=== PATIENT | female | born 1955 | race Two or more races ===

== ENCOUNTER 2018-01-06 04:45 | Emergency (ER) | payer SELFPAY ==
[2018-01-06] MEDS ORDERED: ONDANSETRON HCL INJ/PF 4 MG/2 ML SDV IV ONE (05:13)
[2018-01-06] MEDS ORDERED: FENTANYL CITRATE INJ/PF 100 MCG/2 ML AMPUL IV ONE (05:13)
--- NOTE | 2018-01-06 05:17 | ER Document Report ---
ED Medical Screen (RME) - General Chief Complaint: Abdominal Pain Stated Complaint: ABDOMINAL PAIN Time Seen by Provider: 01/06/18 05:06 Notes: Patient is a 62-year-old female comes emergency department for chief complaint of lower abdominal pain, pain started yesterday, intermittently it is very sharp and painful, she states that she can feel it around to her back on both sides but not in any particular area of her back. She reports nausea but denies vomiting. She has been able to eat. She states her bowel movements over the past couple days have been "pencil thin". She has had an endoscopy in the past which showed an abnormal growth which was "shaved off", patient has not been back to gastroenterology and cannot tell me anymore details in regards to this. No fever or chills. No abdominal surgeries. TRAVEL OUTSIDE OF THE [place] IN LAST 30 DAYS: No - Related Data Allergies/Adverse Reactions: No Known Allergies Allergy (Unverified 01/06/18 04:50) Physical Exam - Vital signs Vitals: Temp Pulse Resp BP Pulse Ox 98.7 F 94 20 151/80 H 100 01/06/18 04:50 01/06/18 04:50 01/06/18 04:50 01/06/18 04:50 01/06/18 04:50 - General General appearance: Anxious In distress: Mild - Patient appears to be in some pain - Abdominal Tenderness: Tender - Generalized lower abdominal tenderness, nonspecific, no overt guarding, no rigidity Course - Re-evaluation Re-evalutation: Generalized lower abdominal tenderness, patient appears to be in pain, pain radiates around the back. Good distal pulses. Laboratory workup pending. - Vital Signs Vital signs: Temp Pulse Resp BP Pulse Ox 98.7 F 94 20 151/80 H 100 01/06/18 04:50 01/06/18 04:50 01/06/18 04:50 01/06/18 04:50 01/06/18 04:50
[2018-01-06 05:45] LABS: ABSOLUTE EOSINOPHILS # (AUTO) 0.1 10^3/uL (0.0-0.6); ABSOLUTE LYMPHOCYTES (AUTO) 1.4 10^3/uL (0.5-4.7); ABSOLUTE MONOCYTES (AUTO) 0.7 10^3/uL (0.1-1.4); ABSOLUTE NEUT (AUTO) 10.6 10^3/uL (1.7-8.2); BASOPHILS % (AUTO) 0.2 % (0-2); EOSINOPHILS % (AUTO) 0.4 % (0-6); HEMATOCRIT 44.9 % (36.0-47.0); HEMOGLOBIN 15.5 g/dL (12.0-15.5); LYMPHOCYTES % (AUTO) 11.2 % (13-45); MEAN CORPUSCULAR HEMOGLOBIN 31.3 pg (27.0-33.4); MEAN CORPUSCULAR HGB CONC 34.5 g/dL (32.0-36.0); MEAN CORPUSCULAR VOLUME 91 fl (80-97); MONOCYTES % (AUTO) 5.6 % (3-13); PLATELET COUNT 216 10^3/uL (150-450); RED BLOOD COUNT 4.95 10^6/uL (3.72-5.28); RED CELL DISTRIBUTION WIDTH 13.9 % (11.5-14.0); SEGMENTED NEUTROPHILS % (AUTO) 82.6 % (42-78); TOTAL CELLS COUNTED % (AUTO) 100 %; WHITE BLOOD COUNT 12.9 10^3/uL (4.0-10.5)
[2018-01-06 06:10] LABS: ALANINE AMINOTRANSFERASE 24 U/L (9-52); ALBUMIN 4.4 g/dL (3.5-5.0); ALKALINE PHOSPHATASE 77 U/L (38-126); ANION GAP 10 (5-19); ASPARTATE AMINO TRANSFERASE 24 U/L (14-36); BILIRUBIN,DIRECT 0.3 mg/dL (0.0-0.4); BILIRUBIN,TOTAL 1.1 mg/dL (0.2-1.3); BLOOD UREA NITROGEN 14 mg/dL (7-20); CALCIUM 9.6 mg/dL (8.4-10.2); CARBON DIOXIDE 28 mmol/L (22-30); CHLORIDE 105 mmol/L (98-107); GLUCOSE 100 mg/dL (75-110); LIPASE 65.7 U/L (23-300); POTASSIUM 4.1 mmol/L (3.6-5.0); SODIUM 143.3 mmol/L (137-145); TOTAL PROTEIN 7.4 g/dL (6.3-8.2)
--- NOTE | 2018-01-06 06:14 | ER Document Report ---
ED General - General Chief Complaint: Abdominal Pain Stated Complaint: ABDOMINAL PAIN Time Seen by Provider: 01/06/18 05:06 TRAVEL OUTSIDE OF THE [place] IN LAST 30 DAYS: No - HPI Notes: Patient is a 62-year-old female comes emergency department for chief complaint of lower abdominal pain, pain started yesterday, intermittently it is very sharp and painful, she states that she can feel it around to her back on both sides but not in any particular area of her back. She reports nausea but denies vomiting. She has been able to eat. She states her bowel movements over the past couple days have been "pencil thin". She has had an endoscopy in the past which showed an abnormal growth which was "shaved off", patient has not been back to gastroenterology and cannot tell me anymore details in regards to this. No fever or chills. No abdominal surgeries. - Related Data Allergies/Adverse Reactions: No Known Allergies Allergy (Unverified 01/06/18 04:50) Past Medical History - Social History Smoking Status: Unknown if Ever Smoked Family History: None Patient has suicidal ideation: No Patient has homicidal ideation: No Renal/ Medical History: Denies: Hx Peritoneal Dialysis Review of Systems - Review of Systems Notes: REVIEW OF SYSTEMS: CONSTITUTIONAL: -fevers, -chills EENT: -eye pain, -difficulty swallowing, -nasal congestion CARDIOVASCULAR: -chest pain, -syncope. RESPIRATORY: -cough, -SOB GASTROINTESTINAL: + abdominal pain, -nausea, -vomiting, -diarrhea GENITOURINARY: -dysuria, -hematuria MUSCULOSKELETAL: -back pain, -neck pain SKIN: -rash or skin lesions. HEMATOLOGIC: -easy bruising or bleeding. LYMPHATIC: -swollen, enlarged glands. NEUROLOGICAL: -altered mental status or loss of consciousness, -headache, - neurologic symptoms PSYCHIATRIC: -anxiety, -depression. ALL OTHER SYSTEMS REVIEWED AND NEGATIVE. Physical Exam - Vital signs Vitals: Temp Pulse Resp BP Pulse Ox 98.7 F 94 20 151/80 H 100 01/06/18 04:50 01/06/18 04:50 01/06/18 04:50 01/06/18 04:50 01/06/18 04:50 - Notes Notes: PHYSICAL EXAMINATION: GENERAL: Well-appearing, well-nourished and in no acute distress. HEAD: Atraumatic, normocephalic. EYES: Pupils equal round and reactive to light, extraocular movements intact, sclera anicteric, conjunctiva are normal. ENT: nares patent, oropharynx clear without exudates. Moist mucous membranes. NECK: Normal range of motion, supple without lymphadenopathy LUNGS: Breath sounds clear to auscultation bilaterally and equal. No wheezes rales or rhonchi. HEART: Regular rate and rhythm without murmurs ABDOMEN: Soft. LLQ tenderness EXTREMITIES: Normal range of motion, no pitting or edema. No cyanosis. NEUROLOGICAL: Cranial nerves grossly intact. Normal speech, normal gait. Normal sensory and motor exams. PSYCH: Normal mood, normal affect. SKIN: Warm, Dry, normal turgor, no rashes or lesions noted. Course - Re-evaluation Re-evalutation: 01/06/18 07:22 Pleasant female presents with pain left lower quadrant diffuse in nature. Patient's has a mild leukocytosis. Patient tolerating oral intake. Given opioid pain medicine along with fluid resuscitation in the urgency department. Patient's CAT scan abdomen and pelvis finds diverticulitis with some fat stranding. No signs of abscess or fluid pockets. Patient be discharged home with oral antibiotics, oral opioid therapy, oral emetics. Follow-up with PCP. - Vital Signs Vital signs: Temp Pulse Resp BP Pulse Ox 98.7 F 94 11 L 133/105 H 99 01/06/18 04:50 01/06/18 04:50 01/06/18 07:00 01/06/18 06:01 01/06/18 07:00 - Laboratory Result Diagrams: 01/06/18 05:35 01/06/18 05:35 Laboratory results interpreted by me: 01/06/18 01/06/18 05:35 06:18 WBC 12.9 H Seg Neutrophils % 82.6 H Lymphocytes % 11.2 L Absolute Neutrophils 10.6 H Urine Blood LARGE H Urine Urobilinogen 2.0 H Discharge - Discharge Clinical Impression: Diverticula of colon Condition: Stable Disposition: HOME, SELF-CARE Instructions: Diverticulitis ([facility]) Prescriptions: Amox Tr/Potassium Clavulanate [Augmentin 875-125 Tablet] 1 tab PO BID 10 Days tablet Ondansetron [Zofran Odt 4 mg Tablet] 1 - 2 tab PO Q4H PRN #15 tab.rapdis PRN Reason: For Nausea/Vomiting Oxycodone HCl [Oxycodone HCl 10 MG Tablet] 1 - 2 tab PO Q6H PRN #15 tablet PRN Reason: PAIN Referrals: KRISTOFER MENDOZA DO [NO LOCAL MD] - Follow up as needed
[2018-01-06] MEDS ORDERED: NORMAL SALINE 1000 ML 1,000 ML IV ONE (06:27)
[2018-01-06] MEDS ORDERED: MORPHINE SULFATE 10 MG/ML INJ IV ONE (06:27)
[2018-01-06 06:41] LABS: APPEARANCE,URINE SLIGHTLY-CLOUDY; BILIRUBIN,URINE NEGATIVE (NEGATIVE); COLOR,URINE AMBER; GLUCOSE, URINE NEGATIVE (NEGATIVE); KETONES,URINE NEGATIVE (NEGATIVE); LEUKOCYTE ESTERASE,URINE NEGATIVE (NEGATIVE); NITRITE,URINE NEGATIVE (NEGATIVE); PROTEIN,URINE NEGATIVE (NEGATIVE); URINE SPECIFIC GRAVITY 1.025
--- NOTE | 2018-01-06 07:10 | RADIOLOGY REPORT (SQ) ---
EXAM DESCRIPTION: CT ABDOMEN PELVIS WITH IV CONTRAST CLINICAL HISTORY: 62 years Female, abdominal pain Comparison: None. Technique: IV contrast. Coronal and sagittal reformat. This exam was performed according to our departmental dose-optimization program, which includes automated exposure control, adjustment of the mA and/or kV according to patient size and/or use of iterative reconstruction technique.[facility]: Dose Right [facility]: CareDose [facility]: Dose Right [facility]: Teradose 4D [facility]: [place] LIMITATIONS: None. Findings: Moderate sigmoid diverticulitis includes moderate fat inflammation left paracentral to mid sigmoid. No free fluid. No abscess. Normal appendix. Calcified splenic and hepatic granulomata. Atherosclerosis. Normal appendix. Inferior thorax, liver, gallbladder, pancreas, spleen, adrenals, renal system, pelvic organs, lymphatics, vasculature, and musculoskeleton appear otherwise unremarkable. IMPRESSION: Moderate sigmoid diverticulitis. No abscess.
[2018-01-06] MEDS ORDERED: HYDROMORPHONE HCL INJ/PF 2 MG/ML AMPULE IV ONE (07:32)
[2018-01-06] MEDS ORDERED: CEFTRIAXONE 1 GM/D5W RTU 50 ML IV ONE (07:32)
[2018-01-06] MEDS ORDERED: CEFTRIAXONE 1 GM/D5W RTU 1 GM/50 ML RTUPB IV ONE (07:41)
[2018-01-06 08:13] VITALS: BP 121/84
== END 2018-01-06 08:15 | disposition home or self-care (01) ==
LOC: ER 04:45
DX: D72.829 Elevated white blood cell count, unspecified (principal); K57.30 Diverticulosis of large intestine without perforation or abscess without bleeding; R10.32 Left lower quadrant pain; R11.0 Nausea
CPT/HCPCS: 99284; 96361; 96374; 96375; 36415; 83690; 85025; 80053; 81001; 74177; J3010; J2270; J1170; J2405; J7030; J0696